=== PATIENT | female | born 1955 | race Caucasian/White ===

== ENCOUNTER 2022-08-09 11:18 | Emergency (ER) | payer BC ==
[2022-08-09] MEDS ORDERED: Potassium Chloride 100 ML IV ONE (13:00)
[2022-09-02 11:58] LABS: ANION GAP 16.4 mEq/L (7-13); CHLORIDE,CL 99 mmol/L (98-107); SODIUM,NA 137 mmol/L (136-145)
[2022-09-02 11:59] LABS: ESTIMATED GFR 76 mL/min (>=60)
[2022-09-02 12:00] LABS: HEMOGLOBIN A1C 5.1 % (<5.7); PTT,PARTIAL THROMBOPLSTIN TIME 24.7 SEC (22.0-34.0)
[2022-09-02 12:03] LABS: CORONAVIRUS COVID-19 NAA NEGATIVE (NEGATIVE)
== END 2022-08-09 14:10 | disposition home or self-care (01) ==
LOC: DL.ED 11:18
DX: E16.2 Hypoglycemia, unspecified (principal); Z20.822 Contact with and (suspected) exposure to COVID-19
CPT/HCPCS: 0240U; 36415; 80053; 81001; 83036; 83605; 83735; 84145; 84443; 84484; 85025; 85610; 85730; 86140; 87086; 87088; 87186; 96365; 99283; 81003; 93005; J3480

== ENCOUNTER 2022-09-28 17:16 | Emergency (ER) | payer BC | END 2022-09-28 18:59 | disposition left against medical advice (07) | LOC: DL.ED 17:16 | DX: Z53.21 Procedure and treatment not carried out due to patient leaving prior to being seen by health care provider (principal) ==